=== PATIENT | male | born 1995 | race Caucasian/White ===

== ENCOUNTER 2018-01-29 02:24 | Inpatient (IN) | payer BC ==
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
[2018-01-29 03:39] LABS: PLATELET COUNT 248 10^3/uL (150-400)
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
--- NOTE | 2018-01-29 15:11 | ASMTTCLDSP ---
[facility] Discharge Disposition Disposition Notes: Notes: In consultation with ED physician Derrell Torres MD and on-call psychiatrist, Domingo Nevarez MD, both concurred that Pt does appear to meet 27-65 criteria requiring inpatient hospitaliziation as Pt does appear to be an immenent risk due to grave disability due to a mental illness condition. he was given the 3N prohibited behavioral list. Was patient given the Answers: Yes Inpatient [facility] Prohibited Belongings List while in the ED? For inpatient Dr Domingo Nevarez MD admission, the following psychiatrist agreed to accept patient for admission to [facility]): Type of Hold: Answers: M1/72-hour Hold Hold initiated by: Answers: ED Physician Date Signed: 01/29/2018 03:10 PM Electronically Signed By:Megan Ramsey
[2018-01-29] MEDS ORDERED: MAGNESIUM HYDROXIDE 30 ML UDCUP PO PRN (15:16)
[2018-01-29] MEDS ORDERED: ACETAMINOPHEN 325 MG TAB PO PRN (15:16)
[2018-01-29] MEDS ORDERED: NICOTINE POLACRILEX 2 MG GUM B PRN (15:16)
[2018-01-29] MEDS ORDERED: MAG HYDROX/AL HYDROX/SIMETH 30 ML UDCUP PO PRN (15:16)
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
[2018-01-29] MEDS ORDERED: OLANZapine 10 MG TAB PO SCH (21:00)
--- NOTE | 2018-01-30 10:36 | PDMN ---
Medical Necessity Medical necessity: MCG Other Psychotic Disorders, Adult: Inpatient Care. ORG: B -[id number] ([facility]) , 3 days, Pt w/unspecified psychosis, on M1 hold, danger to self and gravely disabled
--- NOTE | 2018-01-30 10:53 | ASMTBHMTP ---
Master Treatment Plan Master Treatment Plan Answers: Impaired Reality for: Date: 01/29/2018 Diagnosis on Admission: Brief Psychotic Disorder Expected length of stay: 3-5 days Reason for admission: Notes: Patient is a 22 yoa male brought to ED (by friends per client) due to delusional and nonsensical thinking and thoughts (see TLC report). Patient's stated presenting problems: Notes: Client suggests that he is here due to "fearing for my life...thank god my friends brought me [to the] ED." Patient's goals for treatment: Notes: My main goal is to "get out of here," because I need fresh air. Patient's strengths: Notes: "I have passion." Identify supports outside of hospital: Notes: "My [place] are in [place] Discharge criteria: Notes: Psychotic symptoms will be reduced or eliminated with return to baseline functioning in affect thinking and behavior prior to discharge. Initial disposition plan/considerations: Notes: Client suggests returning to his apartment in [facility]; while returning to work at "[employer]," in [place], [place] Master Treatment Plan Required Signatures Psychiatrist signature: Answers: Psychiatrist: RN on-shift signature: Answers: RN: Patient signature: Answers: Patient: Date Signed: 01/30/2018 10:52 AM Electronically Signed By:Niraj Trevino
[2018-01-30] MEDS ORDERED: OLANZapine DISINTEGR 10 MG TAB PO ONE (11:18)
--- NOTE | 2018-01-30 12:15 | ASMTBHFAM ---
Notes Note: Notes: CC met with client's parents and client together for a family meeting, etc. Parents are eager to understand "what caused, this to happen (client's delusional thinking, paranoia, etc.)." CC spends a lot of time assisting parents of understanding the mental health system, etc. Clt suggests during meeting that he would like to return home to ([place]); however, client has a good job here in [place], but no supports. [place] team will reassess on Sunday during another family meeting to discuss any progress as well as work on any discharge planning, etc. MTP completed and signed as well as filed. DEBO placed in chart. Client provided permission FOR PARENTS TO HAVE HIS HOUSE KEYS in order to get in to his house, for clothes, etc. Date Signed: 01/30/2018 12:14 PM Electronically Signed By:Niraj Trevino
--- NOTE | 2018-01-30 12:36 | BCON ---
[f rep st] BEHAVIORAL HEALTH CONSULTATION INTERNAL MEDICINE CONSULTATION DATE OF CONSULTATION: 01/30/2018 REFERRING PHYSICIAN: Domingo Nevarez MD REASON FOR REFERRAL: Medical clearance for inpatient behavioral health stay. HISTORY OF PRESENT ILLNESS: This patient presented to the emergency department voluntarily with paranoid ideation. He was evaluated by the mental health team and was admitted for further psychiatric evaluation. He currently is without any acute complaints. PAST MEDICAL HISTORY: He denies any history of medical illnesses. PAST SURGICAL HISTORY: He has not had surgeries. MEDICATIONS: He was not taking any medications. ALLERGIES: There are no known drug allergies. SOCIAL HISTORY: He reports daily marijuana use. He smokes occasional tobacco and drinks alcohol intermittently. He lives with roommates. He has a job working in the [employer] department of a company called [employer]. He is a college graduate. FAMILY HISTORY: He reports that there is Alzheimer disease on his mother's side , though his parents are in good health. REVIEW OF SYSTEMS: He denies fevers, chills, weight change, cough, dyspnea, nausea, vomiting, constipation, or diarrhea. He is not in pain. Otherwise, a 10-point review of systems is negative. PHYSICAL EXAM: VITAL SIGNS: Blood pressure is 112/70, heart rate 62, respiratory rate 18, oxygen saturation 82% on room air. Temperature is 36.6 degrees centigrade. His weight is 68 kg for a body mass index of 24.2. GENERAL : This is a well-nourished, well-developed man, appears his chronologic age with a long but trimmed severino, cooperative and in no acute distress. HEENT: Extraocular movements are intact. Pupils are equal, round, reactive to light. Mucous membranes are moist. Dentition is in good condition. There are no oropharyngeal mucosal lesions. He has an uncrowded airway, Mallampati class 1. There is minor cobblestoning noted in the posterior oropharynx. NECK: Supple. HEART: There is a regular rate and rhythm, with no murmurs, rubs, or gallops. LUNGS: Clear to auscultation bilaterally. ABDOMEN: Benign. NEUROLOGIC: He is alert and oriented x3. Cranial nerves 2-12 are grossly intact. There is no focal weakness. Sensation is intact to light touch, and gait is within normal limits. LABORATORY DATA: Laboratory studies drawn yesterday: Comprehensive metabolic profile showed an anion gap slightly elevated at 17. He had a slightly elevated glucose at 115, but this was likely nonfasting. Hemoglobin A1c was added on subsequently and was 5.0. Liver function tests revealed a slightly elevated total bilirubin at 1.9, otherwise were within normal limits. Hematology showed leukocytosis with a white blood cell count of 11.56. It was predominantly neutrophils, but there was no left shift. Toxicology screen in the serum was negative for ethyl alcohol, and the urine was negative for any substances of abuse, including negative for marijuana. ASSESSMENT/RECOMMENDATIONS: 1. Mental health issues pending further evaluation and treatment per Psychiatry and the mental health team. 2. Marijuana use disorder, per his own history. Curious that his urine drug screen was negative for THC, which raises the question of what drug he might have been ingesting. 3. Leukocytosis and anion gap are likely due to stress. He shows no signs or symptoms of infection or of any metabolic derangement. I see no medical contraindications to this patient's continued stay on the inpatient behavioral health unit or to any psychiatric medications or procedures. Thank you very much for including me in the care of this patient and please do not hesitate to contact me or the hospitalist service should there be need for further medical evaluation. /[id number]/MODL MTDD
--- NOTE | 2018-01-30 15:10 | SOAPPROG ---
SOAP Progress Note Assessment/Plan: Assessment: Unspecified psychosis. No improvement noted. (see subjective/objective note). Patient could benefit from continued inpatient hospitalization for crisis stabilization, safety, and medication evaluation. Plan: Review psychotropic medication treatment informed consent and recommendations. After reviewing risk and benefits, patient agrees to continue medications with the following changes. Medication changes include Zyprexa Zydis 10 mg po now as patient did not receive 10 mg dose at HS last night and change Zyprexa HS to Zyprexa Zydis. Patient agrees to UDS. No other medication changes at this time as more time is needed to determine ongoing tolerability and efficacy. Plan is to continue to observe patient for response and side effects from medications, and ongoing monitoring and evaluation. Next steps are for patient to meet with long term care social worker to plan a safe discharge plan and establish outpatient services for ongoing treatment. Consider discharge next week if patient is in stable condition, safe, and has a safe discharge plan. PSYCHOTROPIC MEDICATION TREATMENT INFORMED CONSENT and RECOMMENDATIONS: Review nature of condition, diagnosis, and prognosis. Review nature and purpose of psychotropic medication treatment. Review type of psychotropic medications being ordered. Review risk and benefits of psychotropic medication treatment. Review probable length of time patient will need to take medications. Review risk and benefits of not undergoing psychotropic medication treatment. Review alternative treatments to psychotropic medications. Review psychotropic medications contraindications, drug-drug interactions, side effects, and importance of reporting any side effects to a psychiatric provider or nurse during inpatient hospitalization, and upon discharge to patients psychiatric outpatient provider, primary care provider, or other health administrator health care facility. Review importance of asking a nurse, psychiatric provider, or primary care provider any questions or problems concerning the psychotropic medications. Verify patient understands the information that has been provided, and understands, accepts, and agrees to psychotropic medications. Review patients safety plan and importance of patient to report to staff while hospitalized if patient is ever a danger to self/others, or unable to care for self, and upon discharge, the importance for patient to contact [facility] or [facility], or go to the nearest emergency room, if patient is ever a danger to self/others, or unable to care for self. Recommend that upon discharge patient establish medication management treatment with a psychiatric provider, establishes routine therapy appointments, and follow-up with primary care provider. Verify patient understands and agrees to these recommendations. 01/30/18 15:09 Subjective: Following up with patient for evaluation of psychosis and safety. Patient states, "Do you believe me regarding the JOSSIE is following me?" Patient reports he slept well, was not asked to take Zyprexa 10 mg po QHS last night, and requests this interviewer to meet with him and his parents as his parents have traveled from [place] to visit him. Patient states he is unsure why he is currently hospitalized. Patient denies SI/HI, A/V hallucinations, and denies that his paranoid thoughts regarding being followed and monitored are delusional. Patient states he slept well last night, describes his mood as okay , is attending groups, and eating all meals. Objective: Vital Signs Temp Pulse Resp BP Pulse Ox 36.6 C 62 18 112/70 94 01/30/18 06:00 01/30/18 06:00 01/30/18 06:00 01/30/18 06:00 01/30/18 06:00 Consulted with treatment team staff for update on patients progress in treatment. Nurses report patient refused Zyprexa 10 mg po QHS, slept 12 hours, and is not engaged in his treatment. Nurse reports patient continues to report paranoid delusions. Met with patient, patient's parents, and long term care social worker to discuss patient's treatment plan. Patient and patient's parents responded well to meeting and agreed with treatment plan. MSE: The patient is a well-nourished, male, looking stated chronological age. Attire is appropriate Grooming status is appropriate. Ambulation is independent. Gait is normal and coordinated. Posture is normal and relaxed. Eye contact is inappropriate and glaring. Motor activity is appropriate. Attitude is uncooperative, guarded, and defensive. Patient appears distractible and does not relate well to this interviewer. Language production is spontaneous. Rate is fluent. Latency of response is shortened, with irritable tone, and high volume, and amount is hypertalkative. Articulation is clear. Patient reports mood as euthymic with incongruent, constricted affect. Patients thought process is non-linear and illogical, with loose associations, tangential thought. Patient does not report suicidal/homicidal thoughts, ideas, or plans. Patient denies auditory, visual hallucinations. Patient denies thoughts as delusional, unable to test reality, and reports several paranoid delusions to this interviewer, parents, and staff. Patient does not appear to be attending to internal stimuli. ORIENTATION: x3; absent to situation. ATTENTION/CONCENTRATION: poor INSIGHT: poor. JUDGMENT: poor. COGNITIVE: no evidence of gross cognitive dysfunction at any point during the interview. No apparent dysfunction in recent or remote memory noted. - Time Spent With Patient Time Spent With Patient: 60 minutes, met with patient and patient's parents per patient's request. - Pending Discharge Pending Discharge Within 24 Hours: No Pending Discharge Within 48 Hours: No ICD10 Worksheet Patient Problems: Problems Problem Status Onset Marijuana use Acute Paranoid delusion Acute
[2018-01-30] MEDS: OLANZapine DISINTEGR 10 MG TAB PO SCH (20:15)
--- NOTE | 2018-01-31 11:53 | SOAPPROG ---
SOAP Progress Note Assessment/Plan: Assessment: Substance-induced psychosis. Improving. (see subjective/objective note). Patient could benefit from continued inpatient hospitalization for crisis stabilization, safety, and medication evaluation. Plan: Review psychotropic medication treatment informed consent and recommendations. After reviewing risk and benefits, patient agrees to continue medications with the following changes. Medication changes include Zyprexa Zydis 5 mg po now. No other medication changes at this time as more time is needed to determine ongoing tolerability and efficacy. Plan is to continue to observe patient for response and side effects from medications, and ongoing monitoring and evaluation. Next steps are for patient to meet with healthcare economics consultant to plan a safe discharge plan and establish outpatient services for ongoing treatment. Consider discharge Sunday if patient is in stable condition, safe, and has a safe discharge plan. PSYCHOTROPIC MEDICATION TREATMENT INFORMED CONSENT and RECOMMENDATIONS: Review nature of condition, diagnosis, and prognosis. Review nature and purpose of psychotropic medication treatment. Review type of psychotropic medications being ordered. Review risk and benefits of psychotropic medication treatment. Review probable length of time patient will need to take medications. Review risk and benefits of not undergoing psychotropic medication treatment. Review alternative treatments to psychotropic medications. Review psychotropic medications contraindications, drug-drug interactions, side effects, and importance of reporting any side effects to a psychiatric provider or nurse during inpatient hospitalization, and upon discharge to patients psychiatric outpatient provider, primary care provider, or other health care manager. Review importance of asking a nurse, psychiatric provider, or primary care provider any questions or problems concerning the psychotropic medications. Verify patient understands the information that has been provided, and understands, accepts, and agrees to psychotropic medications. Review patients safety plan and importance of patient to report to staff while hospitalized if patient is ever a danger to self/others, or unable to care for self, and upon discharge, the importance for patient to contact [facility] or [facility], or go to the nearest emergency room, if patient is ever a danger to self/others, or unable to care for self. Recommend that upon discharge patient establish medication management treatment with a psychiatric provider, establishes routine therapy appointments, and follow-up with primary care provider. Verify patient understands and agrees to these recommendations. 01/31/18 11:52 Subjective: Following up with patient for evaluation of psychosis and safety. Patient states, "Doesnt feel plausible that someone is plotting my murder. Seems too far-fetched." Patient denies SI/HI, A/V hallucinations, and agrees that his thoughts prior to his admission were not realistic. Patient states he slept well last night, describes his mood as okay, is attending groups, and eating all meals. Objective: Vital Signs Temp Pulse Resp BP Pulse Ox 36.6 C 46 L 16 109/62 96 01/30/18 06:00 01/31/18 06:18 01/31/18 06:18 01/31/18 06:18 01/31/18 06:18 Consulted with treatment team staff for update on patients progress in treatment. Nurses reports patient is taking medications as prescribed, tolerating medications, with no report of side effects, and is engaged in this treatment. Nurse report patient is no longer reporting delusional thoughts. Family meeting: Met with patient and patients parents and patients request. Discussed discharge plan on ongoing treatment on outpatient basis. Discussed importance of abstaining from using illicit substances including cannabis and ETOH. The patient is a well-nourished, male, looking stated chronological age. Attire is appropriate, hospital garb. Grooming status is appropriate. Ambulation is independent. Gait is normal and coordinated. Posture is normal and relaxed. Eye contact is appropriate. Motor activity is appropriate. Attitude is cooperative and friendly. Patient appears attentive and relates well to this interviewer. Language production is spontaneous. R/R/V normal. Patient reports mood as euthymic with congruent affect. Patients thought process is linear and logical, with no loose associations, no tangential thought. Patient does not report suicidal/homicidal thoughts, ideas, or plans. Patient denies auditory, visual hallucinations. Patient denies delusions. Patient does not appear to be attending to internal stimuli. Orientation is full x4, attention and concentration are adequate, insight and judgement are good, and no evidence of gross cognitive dysfunction at any point during the interview. No apparent dysfunction in recent or remote memory noted. - Time Spent With Patient Time Spent With Patient: 60 minutes, met with patient individually and with patient and patient's parents at patient's request. - Pending Discharge Pending Discharge Within 24 Hours: Yes Pending Discharge Within 48 Hours: No Pending Discharge Date: 02/01/18 Pending Discharge Time: 11:00 ICD10 Worksheet Patient Problems: Problems Problem Status Onset Marijuana use Acute Paranoid delusion Acute
[2018-01-31] MEDS ORDERED: OLANZapine DISINTEGR 5 MG TAB PO ONE (12:30)
[2018-01-31] MEDS: OLANZapine DISINTEGR 10 MG TAB PO SCH (20:48)
[2018-02-01 06:22] VITALS: BP 105/64
--- NOTE | 2018-02-01 11:43 | ASMTBHDC ---
Notes Note: Notes: CC meets with provider, family and client. Client agrees to "go back home with parents for the summer and recieve out-patient services in [place], with their assistance, etc." CC also, provided contact information as well as additional [facility] for continuity of care, care coordiantion and best treatment practices. Discharge Order in and client leaving unit with parents. Client presents as alert, focused, positive affect while denying any feelings of S/I-H/I, etc. No Issues Follow up with: Providers set up by parents in [place] [facility] [employer] [email or web address] Additional [place] Resources: [facility] [address] [place] [address] [phone] [facility] [address] [place] [address] Date Signed: 02/01/2018 11:42 AM Electronically Signed By:Niraj Trevino
--- NOTE | 2018-02-01 15:42 | BDS ---
[f rep st] BEHAVIORAL HEALTH DISCHARGE SUMMARY REASON FOR ADMISSION: The patient presented to the [facility] ED with paranoid thoughts and hallucinations for the last several weeks and reported these symptoms were getting progressively worse. He presented by himself to the emergency department after being out at a bar and being concerned that a group of people sitting at a table near him were plotting his murder. The patient was admitted involuntarily on an M1 hold due to being gravely disabled and was hospitalized for safety, crisis stabilization, and medication evaluation. ADMITTING DIAGNOSES: Substance-induced psychosis; cannabis use disorder, severe. ADMISSION PHYSICAL EXAM: The patient was seen by Dr. Keith on 01/30/2018, for an internal medicine consultation. Reason for referral was medical clearance for inpatient behavioral health stay. For further information and further details regarding the admission physical exam, please refer to note by Dr. Keith dated 02/07/2018. Dr. Keith did report in his note that he saw no medical contraindications to the patient's continued stay on the inpatient behavioral health unit or to any psychiatric medications or procedures. ADMISSION LABS: Labs drawn on 01/29/2018: Comprehensive metabolic profile showed an anion gap slightly elevated at 17. The patient had a slightly elevated glucose at 115, but this was likely not fasting. Hemoglobin A1c was added on subsequently and was 5.0. Liver function tests revealed a slightly elevated total bilirubin at 1.9, otherwise within normal limits. Hemoglobin showed leukocytosis with a white blood cell count of 11.56. It was predominantly neutrophils, but there was no left shift. Toxicology screen in the serum was negative for ethyl alcohol, and the urine was negative for all substances of abuse, including marijuana. In addition, a second UDS was drawn on 01/30, and this UDS was positive for marijuana. HOSPITAL COURSE: The most prominent symptoms and behaviors while the patient was here were hypervigilance and paranoid thoughts. Target symptoms included paranoid delusions. Treatment modalities utilized were milieu and group therapy. Zyprexa Zydis 5 mg p.o. daily and 10 p.o. q.h.s. were started to target psychosis and notably paranoid delusions. His medications were tolerated with no report of side effects and with good response. The patient has improved considerably, with no signs of psychiatric symptoms and no psychiatric symptoms expressed. The patient reports he has improved since his admission, states to be in stable condition, feels safe at discharge and contracts for safety. The patient's response to treatment was good. The patient now reports he realizes that his thoughts were not real, and he was experiencing paranoid delusions, and patient reports that this was likely due to his heavy cannabis use, and he states due to this experience, he will no longer use cannabis, any other drugs, and will also abstain from alcohol. There were no adverse or unexpected results of treatment. The patient was safe throughout his stay, engaged in his treatment, attended and engaged in groups and was appropriate with staff. The treatment team consensus is the patient is in stable condition and is safe to discharge today. The patient's parents were very involved and supportive. Throughout the patient's stay, they visited each day, met with this interviewer and the patient at the patient's request, and the plan is for the patient to discharge today and then return home to stay with his parents for several weeks and continue treatment on an outpatient basis. CONDITION ON DISCHARGE: Patient is in stable condition and is no longer a danger to self or others, and is not gravely disabled due to mental illness. Patient is no longer in need of inpatient level of care, and can be safely and effectively treated within the community. The patients level of risk at time of discharge is low based on the risk assessment below following this discharge summary. MSE: The patient is casually dressed and with good hygiene, and looks stated age. Patient is sitting, posture is upright, and position is relaxed. Patient appears awake, alert, and responds appropriately and reasonably during interview. Patient is engaged, relates well to interviewer, and emotional facial expression is appropriate to situation and changes appropriately with topic. Patient is cooperative, makes comfortable eye contact, and movements are voluntary, deliberate, coordinated, and smooth and even with no inappropriate movements. Patient makes laryngeal sounds effortlessly and shares conversation appropriately; pace of conversation is appropriate, and stream of talking is fluent; articulation is clear and understandable; word choice is effortless and appropriate for education level; completes sentences, occasionally pausing to think; rate and volume are appropriate for interview and setting. Patient reports mood as euthymic. Patients affect is stable with full variable range, congruent with mood, and appropriate to speech and circumstances. Patient has linear and logical thinking, with no loose associations, tangential thought, thought blocking, concrete thinking, or any other signs of formal thought disorder. Patient denies suicidal and homicidal ideation, and denies hallucinations and delusions. Patient appears to be a reliable historian with sound judgement and good insight into current condition. Patient has no apparent dysfunction in recent or remote memory noted , and no evidence of gross cognitive dysfunction noted at any point during the interview. DISCHARGE DIAGNOSES: Substance-induced psychosis; cannabis use disorder, severe. DISCHARGE MEDICATIONS: Zyprexa 10 mg p.o. q.h.s. The patient did request a prescription for this medication at discharge for 1 month and also requested 1 refill in order to allow enough time to establish outpatient medication management with an outpatient provider. DISPOSITION: Patient left hospital independently and voluntarily with his parents and plans to go to work on Sunday, ask for some voluntary leave from work in order to continue his treatment process on an outpatient basis, and then he plans to return home to [place] with his parents and spend several weeks this summer with his parents as he continues to focus on his treatment. FOLLOWUP: development coordinator reports the appropriate outpatient follow-up services have been established and outpatient appointments have been scheduled. The patient received written instructions with times and dates of outpatient follow-up appointments. The following follow-up recommendations were provided to the patient at discharge: Continue psychotropic medications as prescribed and attend appointments as scheduled. Report any side effects to a psychiatric outpatient provider, a primary care provider, or other health manager care management. Address any questions or problems concerning the psychotropic medications with a psychiatric outpatient provider, a primary care provider, or other health manager care management. Contact [facility] or [facility], or go to the nearest emergency room, if you are ever a danger to yourself/others, or unable to care for yourself. As soon as possible, establish a routine medication management treatment with a psychiatric provider, establish routine therapy appointments, and follow-up with a primary care provider. LEGAL COURSE: The patient was admitted on an M1 for involuntary psychiatric hospitalization. Patient discharged today independently and voluntarily with his parents. ATTITUDE AT TIME OF DISCHARGE: The patient's attitude was positive at time of discharge, and the patient reports looking forward to discharging today. The patient reports he feels safe to discharge, is no longer a danger to himself or others, is in stable condition and contracts for safety. The patient states he will continue medications as prescribed and establish medication management treatment with an outpatient provider after discharge. The patient reports he understands the information that has been provided to him, and he understands, accepts, and agrees to psychotropic medications. The patient reports internal protective factors as the coping skills he has learned while hospitalized here. He plans to continue to practice these coping skills after discharge. The patient reports external protective factors as his family, his friends, and his coworkers. The patient describes looking forward to spending time with his parents today after discharging. 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 The patient reports his family looks forward to him discharging today, and his family states they plan to continue to support the patient and his ongoing treatment and care. This interviewer met with the patient's parents today at the patient's request, and parents agree with the plan for the patient to discharge today, and they report that the patient is safe to discharge. PENDING LABS AND STUDIES: There were no pending labs and studies at time of discharge. ADVANCE DIRECTIVES: There were no advance directives on file, and the patient was full code during his hospitalization. The following psychotropic medication treatment informed consent and recommendations were provided to the patient at time of discharge. Patient reports he understands, accepts, and agrees to the information that has been provided. PSYCHOTROPIC MEDICATION TREATMENT INFORMED CONSENT and RECOMMENDATIONS: Review nature of condition, diagnosis, and prognosis. Review nature and purpose of psychotropic medication treatment. Review type of psychotropic medications being prescribed. Review risk and benefits of psychotropic medication treatment. Review probable length of time will need to take medications. Review risk and benefits of not undergoing psychotropic medication treatment. Review alternative treatments to psychotropic medications. Review psychotropic medications contraindications, side effects, and importance of reporting any side effects to a psychiatric provider, primary care provider, or other health manager care management. Review importance of her asking a psychiatric provider or primary care provider any questions or problems concerning the psychotropic medications. Review importance of reporting to a psychiatric provider, primary care provider, or other health manager care management if she plans to or becomes . Review safety plan and the importance to contact [facility] or [facility] , or go to the nearest emergency room, if ever a danger to yourself/others, or unable to care for yourself. Recommend upon discharge to establish routine medication management treatment with a psychiatric provider, establish routine therapy appointments, and follow-up with a primary care provider. Verify patient understands, accepts, and agrees to the information that has been provided. SUICIDE ASSESSMENT FIVE-STEP EVALUATION AND TRIAGE (1) RISK FACTORS: (a) Suicidal behavior: none (b) Current/past psychiatric disorders: substance-induced psychosis (c) Castillo symptoms: none (d) Family history: none (e) Precipitants/Stressors/Interpersonal: none (f) Change in treatment: discharge from psychiatric hospital (g) Access to firearms: none (2) PROTECTIVE FACTORS: (a) Internal: coping skills (b) External: family and friends (3) SUICIDAL INQUIRY: (a) Ideation: none (b) Plan: none (c) Behaviors: none (d) Intent: none (4) RISK LEVEL: Low: modifiable risk factors, strong protective factors; no SI. Intervention: treatment plan to reduce symptoms: medications and therapy, provided emergency/crisis numbers, follow-up plan, supportive parents. /[id number]
== END 2018-02-01 11:41 | disposition home or self-care (01) | DRG 897 ==
LOC: BBEH 14:00
PROVIDERS: ADMIT Psychiatry & Neurology Psychiatry; ATTEND Psychiatry & Neurology Psychiatry
DX: F12.151 Cannabis abuse with psychotic disorder with hallucinations (principal); F12.150 Cannabis abuse with psychotic disorder with delusions
CPT/HCPCS: 80305; 80307; G0480